=== PATIENT | female | born 1965 | race Hispanic/Latino ===

== ENCOUNTER 2020-07-05 04:26 | Emergency (ER) | payer OTHER ==
[~2020-07-05] VITALS: Ht 152.4 cm; Wt 122.9 kg
== END 2020-07-05 07:06 | disposition home or self-care (01) ==
LOC: FSED 04:26
DX: G51.0 Bell's palsy (principal); R20.2 Paresthesia of skin; R94.31 Abnormal electrocardiogram [ECG] [EKG]
CPT/HCPCS: 70450; 93005; 99283